=== PATIENT | female | born 1965 | race Caucasian/White ===

== ENCOUNTER 2024-03-20 10:49 | Emergency (ER) | payer OTHER, SELFPAY ==
[2024-03-20] VITALS (16 sets, daily range): BP systolic 125–171; BP diastolic 83–117; BMI 26.8
[2024-03-20 11:44] LABS: % Basophils 0.6 % (0-2); % Eosinophils 0.6 % (0-6); % Immature Granulocytes 0.3 % (0-0.5); % Lymphocytes 13.7 % (20.5-51.1); % Monocytes 6.6 % (1.7-9.3); % Neutrophils 78.2 % (42.2-75.2); Absolute Basophils 0.1 10^3/uL (0-0.2); Absolute Eosinophils 0.1 10^3/uL (0-0.7); Absolute Lymphocytes 1.6 10^3/uL (1.2-3.4); Absolute Monocytes 0.8 10^3/uL (0.1-0.6); Hematocrit 46.4 % (37.0-47.0); Hemoglobin 16.4 g/dL (12.0-16.0); Mean Corp Hgb Conc. 35.3 g/dL (33.0-37.0); Mean Corpuscular Hgb 32.7 pg (27.0-31.0); Mean Corpuscular Volume 92.4 fL (81.0-99.0); Mean Platelet Volume 10.6 fL (7.4-10.4); Nucleated Red Blood Cells % 0 %; Platelet Count 251 10^3/uL (130-400); Red Blood Cell Count 5.02 10^6/uL (4.20-5.40); White Blood Cell Count 11.5 10^3/uL (4.8-10.8)
[2024-03-20 11:51] LABS: HCG, Serum Qualitative Screen Negative
[2024-03-20 11:54] LABS: INR 0.99; PT 13.4 Sec (11.4-14.6)
[2024-03-20 11:56] LABS: ALT (SGPT) 27 U/L (0-35); AST (SGOT) 44 U/L (14-36); Albumin 5.2 g/dl (3.5-5.0); Alkaline Phosphatase 105 U/L (38-126); Blood Urea Nitrogen 20 mg/dl (7-17); Calcium 9.5 mg/dl (8.4-10.2); Carbon Dioxide 26 mmol/L (22-30); Chloride 90 mmol/L (98-107); Estimated Creatinine Clearance 66 ml/min; Glucose 153 mg/dl (70-99); Potassium 2.6 mmol/L (3.5-5.1); Sodium 135 mmol/L (135-145); Total Bilirubin 2.3 mg/dl (0.2-1.3); Total Protein 7.9 g/dl (6.3-8.2); eGFR > 60.00
--- NOTE | 2024-03-20 12:04 | ED.GENMED ---
History of Present Illness
General
Chief Complaint: Chest Pain
Source: patient
Time Seen by Provider: 03/20/24 11:45
History of Present Illness
History of Present Illness:
58-year-old female presents to the emergency room complaining of feeling unwell for the past couple days. She has been feeling tired, nauseous. Patient states that she is an alcoholic and had been doing well but recently began drinking again. She
assumed her symptoms were related to this. This morning she developed chest pain and labored breathing. She then had what she describes as a panic attack. She developed cramping and spasm in her hands and feet. Upon my evaluation the patient
appears more comfortable. She no longer has the sense of chest discomfort. Her breathing has normalized. Her hand and foot spasms have alleviated. She does not have a sense that her heart is beating rapidly.
Phy Exam
Physical Exam
Physical Exam:
General: Awake, Alert, Oriented X3. No acute distress.
Vitals: Tachycardic
Head: Atraumatic
Eyes: Pupils equal, EOMI
Throat: Airway intact, no exudates
Neck: Trachea midline
Lungs: Clear and equal b/l
Heart: Tachycardic, irregular rate, no murmurs
Abd: Soft, Nontender, No pulsatile mass
Neuro: Nonfocal
Skin: Warm, dry, no rash
Extremities: pulses equal b/l, no edema
Scores
[id number] Score for Afib Stroke Risk
Age in Years (65=0, 65-74=1, >/=75=2): <65
Sex (Female=+1): Female
Congestive Heart Failure History (Yes=+1): No
Hypertension History (Yes=+1): No
Stroke/TIA/Thromboembolism History (Yes=+2): No
Vascular Disease History (Yes=+1): No
Diabetes Mellitus (Yes=+1): No
Score: 1
Anticoagulation Recommendations: Consider anticoagulation (as validated in nonvalvular fib)
Heart Score for Chest Pain Patients
STEMI patient?: Not applicable
Course
Orders/Labs/Results
Orders:
Orders
03/20/24 10:50
Electrocardiogram (*1) Urgent
Reason for Study: Chest Pain
EKG- Treatment ONCE
03/20/24 11:26
Test Result ONCE
CXR2 [CR Chest - 2 Views ] Urgent
Comment:
Reason For Exam: afib
03/20/24 11:30
Complete Blood Count/With Diff Urgent
Comprehensive Metabolic Panel Urgent
HCG, Serum Qualitative Screen Urgent
Comment: Notify provider if positive test present
Prothrombin Time Urgent
TSH Reflex To Free T4 Urgent
Comment: ADD ON
Troponin I Urgent
03/20/24 12:00
Diltiazem 125 mg/125 ml Nss [Cardizem] 125 mg in 125 ml IV NOW
Initial dose in mg/hr, then titrate:: 5
Titrate to keep:: Heart rate 80-100 bpm
Titrate by mg/hr:: 5 mg/hr
Frequency of titrations (minutes):: 15
Maximum dose in mg/hr:: 15
Diltiazem HCl [Cardizem] 20 mg IV NOW STA
03/20/24 12:05
Add On- LAB Urgent
Tests Added?: tsh reflex t4
03/20/24 12:20
Diltiazem 125 mg/125 ml Nss [Cardizem] 125 mg in 125 ml IV NOW
Initial dose in mg/hr, then titrate:: 5
Titrate to keep:: Heart rate 80-100 bpm
Titrate by mg/hr:: 5 mg/hr
Frequency of titrations (minutes):: 15
Maximum dose in mg/hr:: 15
Diltiazem HCl [Cardizem] 20 mg IV NOW STA
03/20/24 12:50
Diltiazem 125 mg/125 ml Nss [Cardizem] 125 mg in 125 ml IV NOW
Initial dose in mg/hr, then titrate:: 5
Titrate to keep:: Heart rate 80-100 bpm
Titrate by mg/hr:: 5 mg/hr
Frequency of titrations (minutes):: 15
Maximum dose in mg/hr:: 15
03/20/24 12:55
Diltiazem 125 mg/125 ml Nss [Cardizem] 125 mg in 125 ml IV NOW
Initial dose in mg/hr, then titrate:: 5
Titrate to keep:: Heart rate 80-100 bpm
Titrate by mg/hr:: 5 mg/hr
Frequency of titrations (minutes):: 15
Maximum dose in mg/hr:: 15
03/20/24 15:00
0.9% Sodium Chloride 1000 ml [Nss] 1,000 ml Potassium Chloride [KCl] 40 meq Magnesium Sulfate 2 grams Thiamine Injection 200 mg FOLic ACID [Folvite] 1 mg IV 250 mls/hr
03/20/24 16:05
Diltiazem Extended Release [Cardizem Cd] 120 mg PO NOW STA
Abnormal Lab Results
03/20/24
11:30
WBC 11.5 H 10^3/uL
(4.8-10.8)
Hgb 16.4 H g/dL
(12.0-16.0)
MCH 32.7 H pg
(27.0-31.0)
MPV 10.6 H fL
(7.4-10.4)
Absolute Neuts (auto) 9.0 H 10^3/uL
(1.4-6.5)
Absolute Monos (auto) 0.8 H 10^3/uL
(0.1-0.6)
Neutrophils % 78.2 H %
(42.2-75.2)
Lymphocytes % 13.7 L %
(20.5-51.1)
Potassium 2.6 L* mmol/L
(3.5-5.1)
Chloride 90 L mmol/L
(98-107)
BUN 20 H mg/dl
(7-17)
Glucose 153 H mg/dl
(70-99)
Total Bilirubin 2.3 H mg/dl
(0.2-1.3)
AST 44 H U/L
(14-36)
Albumin 5.2 H g/dl
(3.5-5.0)
03/20/24 11:30
03/20/24 11:30
Vital Signs
Initial and Last Documented VS:
Initial Vital Signs
Pulse Resp Pulse Ox
71 18 98
03/20/24 11:02 03/20/24 11:02 03/20/24 11:02
Last Documented Vital Signs
Pulse Resp BP Pulse Ox
100 22 161/93 98
03/20/24 18:15 03/20/24 18:15 03/20/24 18:00 03/20/24 11:02
MDM/Problems Addressed
Differential Diagnosis Includes:
Paroxysmal atrial fibrillation, SVT,
MDM/Problems Addressed:
Patient presents with rapid heart rate. EKG is A-fib with rapid ventricular spots. Heart rate controlled initially with Cardizem IV. Case discussed with cardiology. Patient good candidate for oral Cardizem and outpatient follow-up. Patient's
potassium replaced with some IV potassium and will discharge her on oral potassium as well
*EKG
Interpreted by ED Provider?: Yes
Heart Rate: 169
Rate: tachycardiac
Rhythm: a-fib
[place]: normal axis
Interval: normal interval
QRS Pattern: normal QRS
Ischemia: non-specific ST changes
*Pre Owned Sales Consultant Interpretation
Rate: tachycardiac
Interpretation: abnormal
Rhythm: a-fib
*Critical Care Note
Total Time (30-74mins, 75-104mins- exclusive of procedures): Not Applicable
ED Attending Note
-
Portions of this chart may have been created with voice recognition software.� Occasional wrong word or��sound alike� substitutions may have occurred due to the inherent limitations of voice recognition software.
Discharge Plan
Departure
Patient Disposition: Home (Routine Discharge)
Date of Disposition: 03/20/24
Time of Disposition: 18:19
Patient with high blood pressure during this ER visit?: Yes
Condition: Good
Discharge Problem:
Paroxysmal A-fib
Instructions: Chest Pain CBC Follow Up, BLOOD PRESSURE
Prescriptions:
New
diltiazem HCl [Cardizem CD] 180 mg capsule,extended release 24hr
180 mg PO DAILY Qty: 30 0RF
potassium chloride 20 mEq tablet,ER particles/crystals
20 meq PO BID Qty: 14 0RF
No Action
acetaminophen 500 mg Tablet
1,000 mg PO DAILYPRN PRN (Reason: mild pain)
Referrals:
NONE,* [Family Provider] -
Interventions
Interventions:
*Risk Screen - Suicide Last Done: 03/20/24 11:02
*General Assessment Last Done: 03/20/24 11:02
*Neglect/Abuse Screening Last Done: 03/20/24 11:02
ED- Fall Risk Assessment Last Done: 03/20/24 11:27
ED- Cardiac Assessment Last Done: 03/20/24 11:27
Discharge Date and Time
Print Language: PALESTINIAN
[2024-03-20 12:05] LABS: Troponin I < 0.012 ng/ml
[2024-03-20] MEDS: CARDIZEM 20 MG IV (12:21)
[2024-03-20] MEDS: CARDIZEM 125 IV (13:06)
[2024-03-20 13:07] LABS: TSH Reflex To Free T4 2.49 uIU/ml (0.47-4.68)
[2024-03-20] MEDS: KCL 1026.2 GRAMS IV (14:27)
[2024-03-20] MEDS: KCL 1026.2 MG IV ×2 (14:27)
[2024-03-20] MEDS: KCL 1026.2 MEQ IV (14:27)
[2024-03-20] MEDS: CARDIZEM CD 120 MG PO (16:21)
--- NOTE | 2024-03-20 18:27 | PTCARENOTE ---
NSS infusion stop time.
== END 2024-03-20 18:27 | disposition home or self-care (01) ==
LOC: EMR 10:49
PROVIDERS: EMERGENCY PHYSICIAN Emergency Medicine
DX: I48.0 Paroxysmal atrial fibrillation (principal); R53.83 Other fatigue; R11.0 Nausea; R06.4 Hyperventilation; R07.9 Chest pain, unspecified; R25.2 Cramp and spasm; R03.0 Elevated blood-pressure reading, without diagnosis of hypertension; F10.20 Alcohol dependence, uncomplicated
CPT/HCPCS: 99284; 96365; 96367; 96366 ×6; 96361 ×4; 96376; 71046; 80053; 84443; 84484; 84703; 85025; 85610; 93005

== ENCOUNTER → 2024-04-13 07:03 | Outpatient (REF) | payer OTHER, SELFPAY | LOC: HWRCS 07:03 | PROVIDERS: ATTENDING PHYSICIAN Internal Medicine Cardiovascular Disease | DX: I48.91 Unspecified atrial fibrillation (principal) | CPT/HCPCS: 93306 ==

== ENCOUNTER 2024-05-08 06:08 | Emergency (ER) | payer OTHER, SELFPAY ==
[2024-05-08 06:16] VITALS: BP 128/74
[2024-05-08 06:31] LABS: % Basophils 0.5 % (0-2); % Eosinophils 1.4 % (0-6); % Immature Granulocytes 0.5 % (0-0.5); % Lymphocytes 13.5 % (20.5-51.1); % Monocytes 10.7 % (1.7-9.3); % Neutrophils 73.4 % (42.2-75.2); Absolute Basophils 0.1 10^3/uL (0-0.2); Absolute Eosinophils 0.2 10^3/uL (0-0.7); Absolute Immature Granulocytes 0.1 10^3/uL (0-0.05); Absolute Lymphocytes 1.4 10^3/uL (1.2-3.4); Absolute Monocytes 1.1 10^3/uL (0.1-0.6); Absolute Neutrophils 7.7 10^3/uL (1.4-6.5); Hematocrit 38.7 % (37.0-47.0); Mean Corp Hgb Conc. 36.2 g/dL (33.0-37.0); Mean Corpuscular Hgb 32.7 pg (27.0-31.0); Mean Corpuscular Volume 90.4 fL (81.0-99.0); Mean Platelet Volume 11.4 fL (7.4-10.4); Nucleated Red Blood Cells % 0 %; Platelet Count 183 10^3/uL (130-400); Red Blood Cell Count 4.28 10^6/uL (4.20-5.40); White Blood Cell Count 10.5 10^3/uL (4.8-10.8)
[2024-05-08 06:55] LABS: Troponin I < 0.012 ng/ml
[2024-05-08 06:58] LABS: ALT (SGPT) 18 U/L (0-35); AST (SGOT) 25 U/L (14-36); Albumin 4.7 g/dl (3.5-5.0); Alkaline Phosphatase 82 U/L (38-126); Blood Urea Nitrogen 5 mg/dl (7-17); Calcium 9.5 mg/dl (8.4-10.2); Carbon Dioxide 23 mmol/L (22-30); Chloride 101 mmol/L (98-107); Glucose 128 mg/dl (70-99); Potassium 3.4 mmol/L (3.5-5.1); Sodium 138 mmol/L (135-145); Total Bilirubin 1.4 mg/dl (0.2-1.3); Total Protein 7.2 g/dl (6.3-8.2); eGFR > 60.00
[2024-05-08 07:28] VITALS: BP 126/77
[2024-05-08 08:00] VITALS: BP 124/71
--- NOTE | 2024-05-08 08:45 | ED.GENMED ---
History of Present Illness
General
Chief Complaint: Chest Pain
Source: patient and spouse
Exam Limitations: none
Time Seen by Provider: 05/08/24 08:08
History of Present Illness
History of Present Illness:
58yo female who presents with cp that began at 0100 this am. she states that pain has been persistent since. she reports that the pain is worse with standing. she recently had AF and followed with cards. was decided to not started a NOAC. Patient
states pain is in her left upper chest rating up toward her shoulder and neck. Slightly worse with movement. No shortness of breath. No history of coronary disease. Otherwise healthy.
Past History
Past History
ED Past Medical History: Arrthythmia (Atrial fibrillation)
ED Past Surgical History: Appendectomy and
Social History
Tobacco: Non-smoker
Phy Exam
Physical Exam
Physical Exam:
CONSTITUTIONAL Patient alert and oriented to person, place and time. Well-appearing. Vital signs reviewed.
HEAD atraumatic, normocephalic.
EYES eyelids normal to inspection, Extraocular muscles intact, Conjunctiva normal, Sclera normal.
NECK normal range of motion, Trachea midline, no jugular venous distention.
RESPIRATORY CHEST No respiratory distress noted, Chest expansion equal, Bilateral breath sounds clear. Does have minor tenderness noted about the second intercostal space on the left.
CARDIOVASCULAR regular rate and rhythm, Heart sounds normal.
ABDOMEN abdomen nontender, Bowel sounds normal. No distention.
BACK normal inspection, no obvious deformities
UPPER EXTREMITY range of motion normal, Motor strength normal, no cyanosis, no edema.
LOWER EXTREMITY range of motion normal, Motor strength normal, no cyanosis, no edema.
NEURO Speech normal, No focal motor deficits, [place] coma scale 15, Memory normal, Cranial Nerves intact to screening exam.
SKIN skin warm, dry, and normal in color.
Scores
Heart Score for Chest Pain Patients
STEMI patient?: No
History: Slightly or Non-Suspicious
ECG: Normal
Age: >45 - <65 years
Risk Factors: 1 or 2 Risk Factors
Troponin: </= Normal Limit
Heart Score for Chest Pain Patients: 2
Heart Score Risk: 2.5% MACE over next 6 weeks
Course
Orders/Labs/Results
Orders:
Orders
05/08/24 06:09
Electrocardiogram (*1) Urgent
Reason for Study: Chest Pain
EKG- Treatment ONCE
05/08/24 06:24
Complete Blood Count/With Diff Urgent
Comprehensive Metabolic Panel Urgent
Troponin I Urgent
05/08/24 08:25
D-Dimer Urgent
05/08/24 09:45
CT Chest PE Study Urgent
Comment:
Reason For Exam: CP, sob
05/08/24 11:28
Ketorolac [Toradol] 15 mg IV NOW STA
05/08/24 11:29
Vital Signs- Treatment ONCE
Frequency: Once
Abnormal Lab Results
05/08/24 05/08/24
06:24 08:25
MCH 32.7 H pg
(27.0-31.0)
MPV 11.4 H fL
(7.4-10.4)
Abs Immat Gran (auto) 0.1 H 10^3/uL
(0-0.05)
Absolute Neuts (auto) 7.7 H 10^3/uL
(1.4-6.5)
Absolute Monos (auto) 1.1 H 10^3/uL
(0.1-0.6)
Lymphocytes % 13.5 L %
(20.5-51.1)
Monocytes % 10.7 H %
(1.7-9.3)
D-Dimer 0.54 H ug/mlFEU
(0.00-0.50)
Potassium 3.4 L mmol/L
(3.5-5.1)
BUN 5 L mg/dl
(7-17)
Creatinine 0.5 L mg/dL
(0.6-1.0)
Glucose 128 H mg/dl
(70-99)
Total Bilirubin 1.4 H mg/dl
(0.2-1.3)
05/08/24 06:24
05/08/24 06:24
Vital Signs
Initial and Last Documented VS:
Initial Vital Signs
Temp Pulse Resp BP Pulse Ox
98.4 F 92 20 128/74 100
05/08/24 06:16 05/08/24 06:16 05/08/24 06:16 05/08/24 06:16 05/08/24 06:16
Last Documented Vital Signs
Temp Pulse Resp BP Pulse Ox
98.4 F 76 20 114/73 98
05/08/24 06:16 05/08/24 10:00 05/08/24 10:00 05/08/24 10:00 05/08/24 10:00
MDM/Problems Addressed
Differential Diagnosis Includes:
ACS, PE, pneumothorax, pneumonia, GERD, musculoskeletal chest pain
MDM/Problems Addressed:
Acute chest pain
*Radiology
Radiology exam reviewed: preliminary read by ED provider (No pneumothorax noted by CT.) and radiology read reviewed
*Pulse Oximetry
Patient hypoxic: no
*EKG
Interpreted by ED Provider?: Yes
Interpretation: normal
Rate: normal
Rhythm: sinus
[place]: normal axis
Interval: long QT
QRS Pattern: normal QRS
Ischemia: no ischemia
*Residential Lawn Specialist Interpretation
Rate: normal
Interpretation: normal
Rhythm: sinus
*Critical Care Note
Total Time (30-74mins, 75-104mins- exclusive of procedures): Not Applicable
Data Reviewed
Review of Other/Old Records Reveals: Testing (Echocardiogram reviewed from April 13 showing ejection fraction 56% and no significant valvular disease)
Source: patient
Prescriptions/Medications Considered But Not Given:
Considered aspirin or nitroglycerin but low suspicion for ACS
Patient Management
Escalation/DeEscalation of care consider admission/obs:
states that the patient recently quit drinking on her own. No evidence of sequelae. Troponin negative despite hours of pain. CTA negative for PE. Is tender to touch in the left upper chest and suspect musculoskeletal etiology. Okay for
discharge. Normal sinus rhythm and no evidence of A-fib at this time
ED Attending Note
-
Portions of this chart may have been created with voice recognition software.� Occasional wrong word or��sound alike� substitutions may have occurred due to the inherent limitations of voice recognition software.
Discharge Plan
Departure
Patient Disposition: Home (Routine Discharge)
Date of Disposition: 05/08/24
Time of Disposition: 11:30
Patient with high blood pressure during this ER visit?: No
Discharge Problem:
Chest pain
Instructions: Chest Pain PCP Follow Up
Prescriptions:
No Action
acetaminophen 500 mg Tablet
1,000 mg PO DAILYPRN PRN (Reason: mild pain)
diltiazem HCl [Cardizem CD] 180 mg capsule,extended release 24hr
180 mg PO DAILY Qty: 30 0RF
potassium chloride 20 mEq tablet,ER particles/crystals
20 meq PO BID Qty: 14 0RF
Referrals:
NONE,* [Family Provider] -
Activity Restrictions/Additional Instructions:
Please see your doctor in the next 3 to 5 days for follow-up and reevaluation. Return immediately for worsening pain, shortness of breath, weakness of any kind, fevers or any other concerns.
Interventions
Interventions:
*Risk Screen - Suicide Last Done: 05/08/24 06:16
*Neglect/Abuse Screening Last Done: 05/08/24 06:16
Discharge Date and Time
Print Language: [place]
[2024-05-08 09:00] VITALS: BP 134/81
[2024-05-08 09:39] LABS: D-Dimer 0.54 ug/mlFEU (0.00-0.50)
[2024-05-08 10:00] VITALS: BP 114/73
[2024-05-08] MEDS: TORADOL 15 MG IV (11:53)
== END 2024-05-08 12:05 | disposition home or self-care (01) ==
LOC: EMR 06:08
PROVIDERS: EMERGENCY PHYSICIAN Emergency Medicine
DX: R07.89 Other chest pain (principal); I48.91 Unspecified atrial fibrillation
CPT/HCPCS: 99284; 96374; 71275; 80053; 84484; 85025; 85379; 93005; Q9967